=== PATIENT | male | born 1955 | race Two or more races ===

== ENCOUNTER → 2024-06-14 | Outpatient (CLI) | payer MEDICARE, MEDICAID, SELFPAY ==
[2024-06-14 10:49] LABS: Albumin, Serum 5.1 gm/dL (3.4-4.8); Anion Gap 8 (7-16); BUN/Creatinine Ratio 19 Ratio (12-20); Blood Urea Nitrogen 17 mg/dL (9-23); Calcium 10.4 mg/dL (8.3-10.6); Calcium (Corrected) 10.4 mg/dL (8.5-10.1); Carbon Dioxide 26.4 mMol/L (20.0-31.0); Chloride 103 mMol/L (98-107); Creatinine (Component) 0.9 mg/dL (0.6-1.3); Glucose 161 mg/dL (74-106); Osmolality,Calculated 278 (275-295); Phosphorous 3.9 mg/dL (2.4-5.1); Potassium 4.5 mMol/L (3.4-5.1); Sodium 137 mMol/L (136-145); eGFR > 60 See Note
== END | disposition home or self-care (01) ==
PROVIDERS: PCP Family Medicine; Referring Provider Family Medicine; Visit Provider Family Medicine
DX: E11.65 Type 2 diabetes mellitus with hyperglycemia (principal); I10 Essential (primary) hypertension
CPT/HCPCS: 36415; 80069

== ENCOUNTER 2024-12-26 15:49 | Emergency (ER) | payer MEDICARE, MEDICAID, SELFPAY ==
[2024-12-26 16:26] VITALS: BP 144/77; PULSE 104; RESP 18; TEMP 37.1; O2SAT 95
--- NOTE | 2024-12-26 16:52 | PD.EDBACK ---
ED Back Injury Pain RME/HPI General Chief Complaint: Back Pain/Injury Stated Complaint: LEFT SIDE ABD PAIN/BACK PAIN Time Seen by Provider: 12/26/24 16:28 Source: patient Arrival date/time: 12/26/24 15:49 69-year-old male presents to urgent care with pain to the left anterior ribs rating to the patient's back. This has been ongoing x 1 year. Patient tells me it has been worse in the last 2 months. Denies trauma Mode of arrival: ambulatory Limitations: no limitations RME / HPI MD Complaint: back pain Related Data Home Medications ?Medication ?Instructions ?Recorded ?Confirmed atorvastatin 10 mg tablet 10 mg PO QDAY 12/21/20 12/21/20 insulin glargine 100 unit/mL (3 40 unit subcut BID 12/21/20 12/21/20 mL) subcutaneous pen (Basaglar KwikPen U-100 Insulin) lisinopril 5 mg tablet 5 mg PO QDAY 12/21/20 12/21/20 Previous Rx's ?Medication ?Instructions ?Recorded docusate sodium 100 mg capsule 100 mg PO BID #30 caps 06/16/24 (Colace) Allergies Allergy/AdvReac Type Severity Reaction Status Date / Time No Known Allergies Allergy Verified 12/26/24 15:49 Review of Systems Constitutional Constitutional: Reports system reviewed and no additional complaints, except as documented Eyes Eyes: Reports system reviewed and no additional complaints, except as documented, Denies dry eyes, Denies exophthalmos and Reports floaters Cardiovascular Cardiovascular: Denies chest pain with activity and Denies claudication ED Exam General Limitations: Present no limitations General appearance: Present alert and in no apparent distress Head Head exam: Present atraumatic Eye Eye exam: Present normal appearance and EOMI ENT ENT exam: Present normal exam, normal oropharynx and mucous membranes moist Neck Neck exam: Present normal inspection Chest Chest inspection: Present normal inspection and symmetric chest wall rise Respiratory Respiratory exam: Present normal lung sounds bilaterally Abdominal Exam Abdominal exam: Present soft and normal bowel sounds Extremities Exam Extremities exam: Present normal inspection and full ROM Back Exam Back exam: Present normal inspection and full ROM (Patient returns full range of motion of her ankle is able to flex at the waist to touch his toes barely misses his toes. All movement at the waist is to end range. No apprent nuero focal deficits) Neurological Exam Neurological exam: Present alert and oriented X3 Psychiatric Psychiatric exam: Present normal affect and normal mood Skin Skin exam: Present warm, dry, intact and normal color Course Course Course Narrative: Patient will have left anterior ribs and a lumbar spine. Quality Measures none Orders Category Date Time Status XR lumbar spine 2-3V Stat Exams 12/26/24 17:01 Completed XR ribs LT 2V Stat Exams 12/26/24 17:01 Completed Ketorolac Inj [Toradol Inj] Med 12/26/24 17:02 Discontinued 30 mg IM X1 ONE Done Vital Signs Vital signs: Vital Signs Temperature 98.8 F 12/26/24 16:26 Pulse Rate 104 H 12/26/24 16:26 Respiratory Rate 18 12/26/24 16:26 Blood Pressure 144/77 H 12/26/24 16:26 Pulse Oximetry (%) 95 12/26/24 16:26 Oxygen Delivery Method Room Air 12/26/24 16:26 Pulse ox room air 95% Back Pain / Injury MDM Narrative MDM Narrative:: Patient will be informed of his x-ray results. He will be discharged in no apparent distress. Patient data External records reviewed:: Other (specify) Clinical information provided by:: none Social determinants that could affect healthcare access:: none Patient has the following chronic illnesses:: arthritis How is presenting disease/condition affected by chronic disease/condition?: uneffected by (Arthritis, movement, rest.) Evaluation data The following diagnostics were reviewed and interpreted by me:: radiology exam(s) Lab and/or radiology exams considered but not ordered:: Radiology results are helpful in the diagnosis of this patient. Interpretation Summary: N/A Medications / Prescriptions Medications or Prescriptions considered but not ordered:: N/A Medication administrations:: Medication Administration History Discontinued Medications Ketorolac Tromethamine (Ketorolac Inj 60 Mg/2 Ml Vial) 30 mg IM X1 ONE Stop: 12/26/24 17:03 Last Admin: 12/26/24 17:08 Dose: 30 mg Documented By: HEIDY N/A Consultations Consultation(s) initiated? (list below): No Diagnosis Differential diagnosis back pain/injury: lumbar radiculopathy, sciatica and strain of lumbar region Most likely diagnosis given after review of the tests above:: arthritis Admission Indicated Admission indicated?: not indicated Admission Request Was there a request for admission?: No Disposition Plan Disposition Plan: Discharge Discharge Attestation Discharge Attestation: The patient and all family members were given an opportunity to ask questions and understood the discharge instructions. Discharge instructions specifically effects, indications for sooner follow up or return to the emergency department, and the expected course of current diagnosis. Patient condition: Stable Discharge Plan Plan Patient Disposition: HOME (Self Care) Discharge Disposition comment: Patient discharged in no apparent distress Prescriptions/Referrals Prescriptions/Med Rec: No Action atorvastatin 10 mg Tablet 10 mg PO QDAY lisinopril 5 mg Tablet 5 mg PO QDAY Basaglmarilu EarlyikPen U-100 Insulin 100 unit/mL (3 mL) Insulin Pen 40 unit SUBCUT BID docusate sodium [Colace] 100 mg capsule 100 mg PO BID Qty: 30 0RF Referrals: Francesco Antoine [Primary Care Provider] - In 1 week Problem List Clinical Impression: Back pain Patient/Caregiver Discharge Instructions Discharge Activity: activity as tolerated Print Language: Occitan Stand Alone Forms: Philomena Award Info., Patient Portal Info Letter PA/GUEST SERVICES ATTENDANT Supervising Physician PA/GUEST SERVICES ATTENDANT Supervising Physician: Gema
--- NOTE | 2024-12-26 17:01 | XR_ITS ---
Examination: Ribs, left, unilateral 2 views Exam date and time: December 26, 2024 1907 hours TECHNIQUE: AP RPO left RIBS 2 views INDICATIONS: Left rib pain for months. Findings: Ribs appear intact No pneumothorax No cortical bone destruction IMPRESSION: Left ribs appear intact
--- NOTE | 2024-12-26 17:01 | XR_ITS ---
Examination: Lumbar spine 3 views TECHNIQUE: AP lateral, lateral thoracolumbar spine 3 views Date and time: December 26, 2024 1718 hours INDICATIONS: Low back pain beginning 4 months ago. FINDINGS: Adequate alignment lumbar vertebral bodies Mild diffuse lumbar disc narrowing Prominent lumbar spondylosis No lumbar fracture Moderate to advanced bilateral hip osteoarthritis IMPRESSION: Mild diffuse lumbar degenerative disc disease
[2024-12-26] MEDS: KETOROLAC INJ 60 MG/2 ML VIAL 30 MG IM (17:08)
[2024-12-26 19:11] VITALS: BP 145/76; PULSE 80; RESP 16; TEMP 36.7; O2SAT 98
== END 2024-12-26 19:13 | disposition home or self-care (01) ==
PROVIDERS: Emergency Provider Emergency Medicine; PCP Internal Medicine
DX: M54.50 Low back pain, unspecified (principal); R07.81 Pleurodynia
CPT/HCPCS: 71100; 72100; 96372; 99283; J1885

== ENCOUNTER 2025-01-09 13:40 | Emergency (ER) | payer MEDICARE, MEDICAID, SELFPAY ==
[2025-01-09 13:58] VITALS: BP 116/72; PULSE 97; RESP 20; TEMP 36.7; O2SAT 96
--- NOTE | 2025-01-09 14:21 | XR_ITS ---
Examination: PA lateral chest 2 views TECHNIQUE: Upright PA lateral chest 2 views Date and time: January 09, 2025 1431 hours Comparison December 26, 2024 INDICATIONS: Left lower chest pain one month. FINDINGS: Areas of subsegmental atelectasis in the left upper and left lower lung zone Normal heart size No pneumothorax No pneumonia No acute rib fractures depicted Thoracic vertebral bodies intact IMPRESSION: Areas of subsegmental atelectasis in the left lung
--- NOTE | 2025-01-09 14:22 | PD.EDRME ---
Rapid Medical Screening Exam RME Arrival date/time: 01/09/25 13:40 69-year-old male presents to the emergency department today for complaints of left upper abdominal pain and left-sided rib pain Chief Complaint: Abdominal Pain Time Seen by Provider: 01/09/25 14:08 Vital signs: Vital Signs Temperature 98.1 F 01/09/25 13:58 Pulse Rate 97 01/09/25 13:58 Respiratory Rate 20 01/09/25 13:58 Blood Pressure 116/72 01/09/25 13:58 Pulse Oximetry (%) 96 01/09/25 13:58
[2025-01-09 15:17] LABS: Collection Type, Urine Clean Catch; Squamous Epithelial Cell,Urine 0 /hpf (0-5)
--- NOTE | 2025-01-09 15:19 | XR_ITS ---
Examination: CT abdomen and pelvis without contrast. Coronal 3-D reconstructions. Sagittal 2-D reconstructions. Date and time of exam:January 09, 2025 1559 hours Comparison June 17, 2024 INDICATIONS: Right upper abdominal pain beginning one week ago CTDI: vol (mGy): 8.27 DLP: (mGycm): 530 Technique: Axial images of the abdomen have been obtained, 3 mm slice thickness Intravenous contrast material has not been administered. Low dose protocols were performed. One or more of the following dose reduction techniques were used; automated exposure control, adjustment of the mA and/or KV according to patient size, use of iterative reconstruction technique. Findings: No focal liver or splenic lesion. No gallstones. No pancreatic or adrenal mass. No renal or ureteral calculi. Minimal perinephric stranding. Normal appendix. No bowel obstruction. Negative for pneumoperitoneum. Urinary bladder wall shows mild thickening Prominent osteopenia. IMPRESSION: No renal or ureteral calculi. Minimal perinephric stranding, consider urinary tract infection Normal appendix No gallstones identified. Mild thickening of the urinary bladder wall, consider cystitis
[2025-01-09 15:23] LABS: Basophils # (Auto) 0.1 Thou/mm3 (0.0-0.2); Basophils % (Auto) 1 % (0-2.5); Eosinophils # (Auto) 0.3 Thou/mm3 (0.0-0.5); Eosinophils % (Auto) 3 % (0-10); Hematocrit 43.9 % (41.0-53.0); Hemoglobin 14.4 g/dL (13.5-16.0); Immature Granulocytes % (Auto) 0 % (0-0); Immature Granulocytes Auto 0.04 Thou/mm3 (0.00-0.00); Lymphocytes # (Auto) 3.2 Thou/mm3 (1.0-4.8); Lymphocytes % (Auto) 32 % (10-50); Mean Corpuscular HGB Conc 32.8 g/dl (31.0-37.0); Mean Corpuscular Hemoglobin 25.5 pg (25.0-35.0); Mean Corpuscular Volume 78 fL (80-100); Monocytes # (Auto) 0.8 Thou/mm3 (0.0-0.8); Monocytes % (Auto) 8 % (0-12); Neutrophils # (Auto) 5.6 Thou/mm3 (1.8-7.7); Neutrophils % (Auto) 56 % (37-80); Nucleated Red Blood Cell % 0 /100 WBC (0); Platelet Count 346 Thou/mm3 (140-440); RDW Standard Deviation 42.8 fL (35.1-43.9); Red Blood Count 5.65 Miln/mm3 (4.50-5.90); White Blood Count 9.9 Thou/mm3 (3.8-10.6)
--- NOTE | 2025-01-09 15:26 | PD.EDABDPN ---
ED Abdominal Pain RME/HPI General Chief Complaint: Abdominal Pain Stated complaint: LUQ ABD PAIN Time seen by provider: 01/09/25 14:08 Arrival date/time: 01/09/25 13:40 69-year-old male with a history of hyperlipidemia, hypertension presents to the emergency room with a chief complaint of left upper quadrant abdominal pain x 1 week Source: patient Mode of arrival: ambulatory Limitations: no limitations RME / HPI RME / HPI narrative: 01/09/25 13:40 69-year-old male presents to the emergency department today for complaints of left upper abdominal pain and left-sided rib pain Related Data Home Medications ?Medication ?Instructions ?Recorded ?Confirmed atorvastatin 10 mg tablet 10 mg PO QDAY 12/21/20 12/21/20 insulin glargine 100 unit/mL (3 40 unit subcut BID 12/21/20 12/21/20 mL) subcutaneous pen (Basaglar KwikPen U-100 Insulin) lisinopril 5 mg tablet 5 mg PO QDAY 12/21/20 12/21/20 Previous Rx's ?Medication ?Instructions ?Recorded docusate sodium 100 mg capsule 100 mg PO BID #30 caps 06/16/24 (Colace) Allergies Allergy/AdvReac Type Severity Reaction Status Date / Time No Known Allergies Allergy Verified 12/26/24 15:49 Review of Systems Review of Systems Systems Reviewed: All systems reviewed, normal except as documented Constitutional Constitutional: Reports system reviewed and no additional complaints, except as documented, Denies fatigue, Denies fever(s), Denies headache(s) and Denies weakness Eyes Eyes: Reports system reviewed and no additional complaints, except as documented, Denies blurry vision and Denies change in vision ENT Ears, Nose, Mouth, and Throat: Reports system reviewed and no additional complaints, except as documented, Denies otalgia, Denies headache(s), Denies nasal congestion, Denies throat swelling and Denies vertigo Cardiovascular Cardiovascular: Reports system reviewed and no additional complaints, except as documented, Denies chest pain, Denies dyspnea and Denies dyspnea on exertion Respiratory Respiratory: Reports system reviewed and no additional complaints, except as documented, Denies chest congestion, Denies cough, Denies dyspnea, Denies dyspnea on exertion and Denies wheezing Gastrointestinal Gastrointestinal: Reports system reviewed and no additional complaints, except as documented, Reports abdominal pain, Reports cramping, Reports nausea and Denies vomiting Genitourinary Genitourinary: Reports system reviewed and no additional complaints, except as documented, Denies dysuria and Denies hematuria Musculoskeletal Musculoskeletal: Reports system reviewed and no additional complaints, except as documented and Denies back pain Integumentary/Breasts Skin/Breast: Reports system reviewed and no additional complaints, except as documented and Denies wounds Neurologic Neurologic: Reports system reviewed and no additional complaints, except as documented, Denies confusion, Denies headache(s), Denies lack of coordination, Denies vertigo and Denies weakness Psychiatric Psychiatric: Reports system reviewed and no additional complaints, except as documented, Denies anxiety, Denies confusion, Denies depression, Denies paranoia, Denies suicidal ideation and Denies tactile hallucinations Endocrine Endocrine: Reports system reviewed and no additional complaints, except as documented and Denies fatigue Hematologic/Lymphatic Hematologic/Lymphatic: Reports system reviewed and no additional complaints, except as documented and Denies lymphadenopathy Allergic/Immunologic Allergic/Immunologic: Reports system reviewed and no additional complaints, except as documented, Denies throat swelling, Denies urticaria and Denies wheezing ED Exam General Limitations: Present no limitations General appearance: Present alert and in no apparent distress Head Head exam: Present atraumatic Eye Eye exam: Present normal appearance, PERRL and EOMI ENT ENT exam: Present normal exam, normal oropharynx and mucous membranes moist Neck Neck exam: Present normal inspection, full ROM and trachea midline Chest Chest inspection: Present normal inspection and symmetric chest wall rise Respiratory Respiratory exam: Present normal lung sounds bilaterally Cardiovascular Cardiovascular exam: Present regular rate, normal rhythm and normal heart sounds Abdominal Exam Abdominal exam: Present soft, tenderness and normal bowel sounds; Absent Mancilla's sign or tenderness at McBurney's Point Abdominal tenderness: Present LUQ and moderate; Absent RUQ or RLQ Extremities Exam Extremities exam: Present normal inspection and full ROM Back Exam Back exam: Present normal inspection and full ROM Neurological Exam Neurological exam: Present alert, oriented X3 and CN II-XII intact Psychiatric Psychiatric exam: Present normal affect and normal mood Skin Skin exam: Present warm, dry, intact and normal color Course Quality Measures none Orders Category Date Time Status EKG (ED ONLY) *Do not use* NOW Care 01/09/25 14:[address] abdomen pelvis wo con Stat Exams 01/09/25 15:19 Completed EKG (ED Only) Stat Exams 01/09/25 14:21 Ordered XR chest 2V Stat Exams 01/09/25 14:21 Completed CBC Stat Lab 01/09/25 14:45 Completed Comprehensive Metabolic Panel Stat Lab 01/09/25 14:45 Completed Lipase Stat Lab 01/09/25 14:45 Completed Troponin I Stat Lab 01/09/25 14:45 Completed UA, C/S IF [Urinalysis, C/S if Indicated] Stat Lab 01/09/25 15:07 Completed Vital Signs Vital signs: Vital Signs Temperature 98.1 F 01/09/25 13:58 Pulse Rate 97 01/09/25 13:58 Respiratory Rate 20 01/09/25 13:58 Blood Pressure 116/72 01/09/25 13:58 Pulse Oximetry (%) 96 01/09/25 13:58 O2 saturation 96% within normal limits Abdominal Pain MDM MDM Narrative MDM Narrative:: 69-year-old male with a history of hyperlipidemia, hypertension presents to the emergency room with a chief complaint of left upper quadrant abdominal pain x 1 week Patient is hemodynamically stable and in no apparent distress Physical examination shows pain and tenderness to the left upper quadrant of his abdomen. CT of the abdomen and pelvis was completed and was negative for any acute findings. CBC CMP were within normal limits urinalysis was normal Patient was discharged and educated to follow-up with primary care provider in the next 24 to 48 hours and return to the emergency room for any evidence of worsening signs or symptoms Patient data External records reviewed:: [facility] previous records Clinical information provided by:: patient Social determinants that could affect healthcare access:: none Patient has the following chronic illnesses:: No chronic illness How is presenting disease/condition affected by chronic disease/condition?: no chronic disease Evaluation data The following diagnostics were reviewed and interpreted by me:: lab results and radiology exam(s) Lab and/or radiology exams considered but not ordered:: Labs and radiology exams considered and ordered Interpretation Summary: CT abdomen and pelvis-Findings: No focal liver or splenic lesion. No gallstones. No pancreatic or adrenal mass. No renal or ureteral calculi. Minimal perinephric stranding. Normal appendix. No bowel obstruction. Negative for pneumoperitoneum. Urinary bladder wall shows mild thickening Prominent osteopenia. IMPRESSION: No renal or ureteral calculi. Minimal perinephric stranding, consider urinary tract infection Normal appendix No gallstones identified. Mild thickening of the urinary bladder wall, consider cystitis Medications / Prescriptions Medications or Prescriptions considered but not ordered:: No medication given Medication administrations:: No medication given Consultations Consultation(s) initiated? (list below): No Diagnosis Differential diagnosis abdominal pain: abdominal pain, acute appendicitis, gastroenteritis and small bowel obstruction Most likely diagnosis given after review of the tests above:: Abdominal pain Admission Indicated Admission indicated?: not indicated Admission Request Was there a request for admission?: No Disposition Plan Disposition Plan: Discharge Discharge Attestation Discharge Attestation: The patient and all family members were given an opportunity to ask questions and understood the discharge instructions. Discharge instructions specifically effects, indications for sooner follow up or return to the emergency department, and the expected course of current diagnosis. Patient condition: Stable Discharge Plan Plan Patient Disposition: HOME (Self Care) Discharge Disposition comment: Stable Prescriptions/Referrals Prescriptions/Med Rec: No Action atorvastatin 10 mg Tablet 10 mg PO QDAY lisinopril 5 mg Tablet 5 mg PO QDAY Basaglar KwikPen U-100 Insulin 100 unit/mL (3 mL) Insulin Pen 40 unit SUBCUT BID docusate sodium [Colace] 100 mg capsule 100 mg PO BID Qty: 30 0RF Referrals: Du Olmstead PA-C [Primary Care Provider] - In 1 week Problem List Clinical Impression: Abdominal pain Patient/Caregiver Discharge Instructions Education Materials: ED Pain, Acute, Uncertain Cause Additional Instructions: Por favor, consulte con haji m?dico de cabecera en las pr?ximas 24 a 48 horas. Haji angiotomograf?a computarizada de abdomen y pelvis fue negativa para cualquier hallazgo bo. Haji radiograf?a de t?rax fue negativa para cualquier hallazgo bo. Ante cualquier evidencia de empeoramiento de los signos o s?ntomas, acuda inmediatamente a urgencias. Print Language: Macedonian Stand Alone Forms: Philomena Award Info., Patient Portal Info Letter PA/ZULEIKA Supervising Physician PA/ZULEIKA Supervising Physician: Dr Ribeiro
[2025-01-09 15:36] LABS: Bilirubin,Urine Negative (Negative); Blood,Urine Negative (Negative); Clarity,Urine Clear (Clear/Hazy); Color,Urine Lt-Yellow (Lt Yel-Yel); Culture Indicated,Urine Not Indicated; Glucose, Urine 4+ (Negative); Ketones,Urine Negative (Negative); Leukocyte Esterase,Urine Negative (Negative); Nitrite,Urine Negative (Negative); Protein,Urine Negative (Neg - Trace); RBC,Urine < 1 /hpf (0-3); Specific Gravity,Urine 1.041 (1.001-1.035); Urobilinogen,Urine Negative mg/dL (0.0-1.0); WBC,Urine 1 /hpf (0-5)
[2025-01-09 15:41] LABS: Alanine Aminotransferase 18 U/L (10-49); Albumin, Serum 5.1 gm/dL (3.4-4.8); Alkaline Phosphatase 70 U/L (46-116); Anion Gap 12 (7-16); Aspartate Amino Transferase 14 U/L (0-34); BUN/Creatinine Ratio 20 Ratio (12-20); Bilirubin,Total 0.4 mg/dL (0.3-1.2); Blood Urea Nitrogen 20 mg/dL (9-23); Calcium 9.4 mg/dL (8.3-10.6); Calcium (Corrected) 9.4 mg/dL (8.5-10.1); Carbon Dioxide 23.6 mMol/L (20.0-31.0); Chloride 103 mMol/L (98-107); Globulin 2.5 gm/dL (2.3-3.5); Glucose 264 mg/dL (74-106); Lipase 32 U/L (12-53); Osmolality,Calculated 289 (275-295); Potassium 4.4 mMol/L (3.4-5.1); Sodium 139 mMol/L (136-145); Total Protein 7.6 gm/dL (5.7-8.2); Troponin I < 0.002 ng/mL (0.0-0.045); eGFR > 60 See Note
[2025-01-09 16:08] VITALS: BMI 29.4
[2025-01-09 16:14] VITALS: BP 153/88; PULSE 84; RESP 16; TEMP 36.7; O2SAT 92
== END 2025-01-09 17:53 | disposition home or self-care (01) ==
PROVIDERS: Nurse Practitioner Primary Care; Emergency Provider Emergency Medicine; PCP Student in an Organized Health Care Education/Training Program
DX: R10.12 Left upper quadrant pain (principal); E78.5 Hyperlipidemia, unspecified; I10 Essential (primary) hypertension; J98.11 Atelectasis
CPT/HCPCS: 36415; 71046; 74176; 80053; 81001; 83690; 84484; 85025; 93005; 99284